=== PATIENT | female | born 1985 | race African-American/Black ===

== ENCOUNTER 2019-09-18 14:37 | Emergency (ER) | payer SELFPAY ==
[~2019-09-18] VITALS: Ht 165.1 cm; Wt 139.8 kg
[2019-09-18] MEDS ORDERED: ACETAMINOPHEN 325 MG TAB PO ONE (15:15)
--- NOTE | 2019-09-18 18:16 | Emergency Department Note ---
History of Present Illnes History of Present Illness Chief Complaint: Headache History of Present Illness This is a 34 year old female with a cc of headache. Does not have a headache now. Onset at awakening this AM - mild. Went back to sleep and no headache when awoke. No headache in ED, came to ED to get "checked out". States has had similar h/a for last month or two. Goes completely away with APAP, but returns after APAP wears off. Lasts about one day. One H/A about every other week. No numbness, tingling, weakness, aura, vision problems. No loss of bowel or bladder function. No other family members in household with headaches. Rarely drinks caffeine and last caffeine was about one week ago. No tobacco, no drugs. Historian: Patient Arrival Mode: Car Quality: dull Radiation: Reports non-radiation Severity: mild Onset quality: unable to specify Duration (how long): day(s) Past Medical/Family History Physician Review I have reviewed the patient's past medical and family history. Any updates have been documented here. Past Medical History Recent Fever: No Clinical Suspicion of Infectio: No New/Unexplained Change in Ment: No Past Medical History: None Past Surgical History: None Social History Smoking Cessation: Never Smoker Counseling Performed: No Alcohol Use: None Any Illegal Drug Use: No Physically hurt or threatened: No Other Any Pre-Existing Lines (PICC,: No Review of Systems Review of Systems Constitutional: Reports no symptoms; Denies chills, Denies fever, Denies malaise, Denies weakness EENTM: Reports no symptoms Cardiovascular: Reports no symptoms Respiratory: Reports no symptoms Gastrointestinal: Reports no symptoms Genitourinary: Reports no symptoms Musculoskeletal: Reports no symptoms Neurological: Reports as per HPI, Reports headache Review of other systems: All other systems negative Physical Exam Related Data Allergies: Coded Allergies: No Known Allergies (Unverified , 09/18/19) Triage Vital Signs Vital Signs Date Time Temp Pulse Resp B/P (MAP) Pulse Ox O2 Delivery O2 Flow Rate FiO2 09/18/19 14:45 98.3 92 18 150/78 99 Room Air Physical Exam CONSTITUTIONAL Constitutional: Present well-developed, Present well-nourished HENT HENT: Present normocephalic, Present atraumatic EYES Eyes: Reports PERRL, Reports conjunctivae normal, Reports EOM normal, Reports lids normal NECK Neck: Present ROM normal, Present supple PULMONARY Pulmonary: Present effort normal, Present breath sounds normal CARDIOVASCULAR Cardiovascular: Present regular rhythm, Present heart sounds normal GASTROINTESTINAL GENITOURINARY SKIN MUSCULOSKELETAL NEUROLOGICAL Neurological: Present alert, Present oriented x 3, Present DTRs normal, Present no gross motor or sensory deficits, Present other (normal rapid alternating movement. Normal [id number]. Pupils equally round and reactive to light. Extraocular movements intact. Strength 5 out of 5 and equal bilaterally upper and lower extremities. Sensation intact and equal bilateral upper lower extremities.); Absent cranial nerve deficit, Absent sensory deficit, Absent abnormal DTRs, Absent abnormal gait PSYCHOLOGICAL Psychological: Present mood/affect normal, Present behavior normal, Present thought content normal Assessment & Plan Medical Decision Making MDM Considerations were given to the following, but not limited to: subarachnoid hemorrhage meningitis migraine headache tension headache cluster headache. The patient does not have a history of hypertension. The patient has a family history of hypertension. Patient's instructed to make a diary of her daily blood pressures and follow up with primary care doctor with this list. She was given strict return for precautions. Reassessment Reassessment The patient developed a mild headache and towards the end of my physical exam. The headache was mild 1 out of 10. It was located in her left frontal area. She was given 1 g of Tylenol which completely relieved the pain by the time of her discharge. Assessment & Plan Final Impression: (1) Headache (2) Hypertension Depart Disposition: HOME, SELF-CARE Last Vital Signs Date Time Temp Pulse Resp B/P (MAP) Pulse Ox O2 Delivery O2 Flow Rate FiO2 09/18/19 14:45 98.3 92 18 150/78 99 Room Air MATEO MARTIN MD Sep 18, 2019 15:16
== END 2019-09-18 15:32 | disposition home or self-care (01) ==
LOC: FSED 15:25
DX: R51 Headache (principal); I10 Essential (primary) hypertension
CPT/HCPCS: 99282

== ENCOUNTER 2021-02-25 09:42 | Emergency (ER) | payer SELFPAY ==
[~2021-02-25] VITALS: Ht 165.1 cm; Wt 131.5 kg
== END 2021-02-25 10:44 | disposition home or self-care (01) ==
LOC: FSED 09:46
DX: S93.401A Sprain of unspecified ligament of right ankle, initial encounter (principal)
CPT/HCPCS: 99283

== ENCOUNTER 2023-05-13 09:29 | Emergency (ER) | payer BC ==
[~2023-05-13] VITALS: Ht 165.1 cm; Wt 131.5 kg
[2023-05-13] MEDS ORDERED: SODIUM CHLORIDE 0.9% 1000ML 1,000 ML ONE (10:26)
[2023-05-13] MEDS ORDERED: ONDANSETRON HCL INJ 2MG/ML 2ML 2 MG/ML VIAL ONE (10:26)
[2023-05-13] MEDS: ONDANSETRON HCL INJ 2MG/ML 2ML 2 MG/ML VIAL IV STA (10:59)
[2023-05-13] MEDS: SODIUM CHLORIDE 0.9% 1000ML 1,000 ML IV ONE (10:59)
[2023-05-13 12:07] VITALS: O2SAT 100
[2023-05-13] MEDS ORDERED: ONDANSETRON ODT4 MG PO (12:17)
== END 2023-05-13 12:25 | disposition home or self-care (01) ==
LOC: FSED 09:40
DX: R42 Dizziness and giddiness (principal); R53.1 Weakness; Z11.52 Encounter for screening for COVID-19
CPT/HCPCS: 0223U; 80053; 80076; 82553; 84484; 85025; 87400; 93005; 96374; 99284; J2405; J7030